=== PATIENT | female | born 1970 | race Caucasian/White ===

== ENCOUNTER 2016-09-30 19:33 | Emergency (ER) | payer OTHER ==
--- NOTE | 2016-09-30 20:30 | ERNOTE ---
Lower Extremity HPI - Narrative Date of Service: 09/30/16 - General Lower Extremities Pain: knee: left - abrasion and tender, ankle: right - painful , swollen Time Seen by Provider: 09/30/16 20:00 Source: patient Exam Limitations: no limitations - Immun/Allergies/Home Medications Immunizations: IMMUNIZATION HX Immunizations Up to Date Yes History of Influenza Vaccine No Hx Pneumococcal Vaccination No Allergies/Adverse Reactions: Allergies Allergy/AdvReac Type Severity Reaction Status Date / Time penicillin G Allergy Verified 09/30/16 19:38 codeine AdvReac Verified 09/30/16 19:38 Home Medications: HOME MEDICATIONS HYDROcodone/ACETAMINOPHEN [Hydrocodon-Acetaminophen 5-325] 1 each PO TID PRN # 20 tablet 09/30/16 [Last Taken Unknown] - History of Present Illness Narrative: 46-year-old female presented to the emergency room after a fall. Patient states that she was stepping off a curb when she rolled her right ankle landing on the grass. States that her right ankle is extremely painful and she is unable to bear weight, her left knee has an abrasion she said the pain is very mild. Date (Duration): 09/30/16 Occurred: just prior to arrival Location of Incident: home Method of Injury: Reports: fell Reason for Fall: Reports: lost balance Loss of Consciousness: Reports: no loss of consciousness Modifying Factors - (Improves): Reports: immobilization Modifying Factors - (Worsens): Reports: movement Associated Symptoms: Reports: unable to bear weight, weakness. Denies: headache , sensory loss, chest pain, vomiting/diarrhea Other Injuries: Reports: extremities - left knee abrasion Subsequent Symptoms: Denies: sensory loss, numbness, bowel/bladder problem Review of Systems - Review of Systems Constitutional: Present: no symptoms reported EYE: Present: no symptoms reported ENT: Present: no symptoms reported Respiratory: Present: no symptoms reported Cardiology: Present: no symptoms reported Gastrointestinal/Abdominal: Present: no symptoms reported Genitourinary: Present: no symptoms reported Musculoskeletal: Present: See HPI, joint pain, joint swelling Neurological: Present: no symptoms reported Endocrine: Present: no symptoms reported Hematologic/Lymphatic: Present: no symptoms reported Psych: Present: no symptoms reported All Other Systems: All systems neg except as marked - Patient's Past Medical History Patient History - Medical: No pertinent hx Patient History - Cardiac/Respiratory: No pertinent hx Patient History - Cancer: No Hx of Cancer Patient History - Surgical Procedures: , T & A, Other Patient History - Other: None LMP (females 10-50): last week - Social History Living Situations: home Abuse History: No History of abuse Psych History: No pertinent hx Smoking Status: Never smoker Alcohol Use: none Drug Use: none - Immunizations Immunizations Up to Date: Yes Hx Pneumococcal Vaccination: No History of Influenza Vaccine: No Physical Exam - Physical Exam Narrative: Patient's right ankle is swollen and tender to palpation. Patient does have +2 bilateral lower extremity edema all the way up to the knee.Ice applied, denies hitting her head or any other injury at his time General Appearance: Present: wd/wn, alert, no apparent distress Eye Exam: Normal inspection: bilateral Ears, Nose, Throat: Present: normal ENT inspection Neck: Present: normal inspection Respiratory: Present: no respiratory distress, lungs clear Cardiovascular/Chest: Present: regular rate, rhythm, normal peripheral pulses Peripheral Pulses: N=norm/S=strong/W=weak/B=bound/A=absent: Dorsalis-pedis (R): Normal, Dorsalis-pedis (L): Normal Gastrointestinal/Abdominal: Present: normal bowel sounds, soft Extremity Exam: Present: normal except - - right ankle swollen, and painful to touch Neurological Exam: Present: alert, oriented, normal mood/affect Skin Exam: Present: normal color, warm/dry, other - amall abrasion to left knee Lymphatic Exam: Present: no adenopathy ED Progress - Date and Time Seen: Date and Time: 09/30/16 20:27 patient refused x ray for left knee. states pain is at a min and did not want x ray. - Vital Signs Patient's Vital Signs:: I have reviewed the patient's vital signs. Vital Signs: Vital Signs 09/30/16 19:39 Temperature 37.1 C Pulse Rate 90 Respiratory 16 Rate Blood Pressure 131/83 O2 Sat by Pulse 99 Oximetry - X-Ray X-Ray #1 X-Ray: ankle Interpretation: Reviewed by me - Progress/Reassessment Chief Complaint: Lower Extremity Pain/ Injury Departure Clinical Impression: Fracture of fibula Qualifiers: Encounter type: initial encounter Fibula location: distal Fracture type: closed Fracture morphology: unspecified fracture morphology Laterality: right Qualified Code(s): S82.831A - Other fracture of upper and lower end of right fibula, initial encounter for closed fracture - Departure Disposition: Home Follow Up Needed Condition: Stable Instructions: Cast or Splint Care, [id number], Tibial and Fibular Fracture, Adult Additional Instructions: Continue previous home medications as directed. Return to the emergency room for any changes and pain sensation motion or color in the casted foot. Return to emergency room if pain is not able to be controlled with [id number] or prescribed pain medications. She may apply ice for swelling 20 minutes on and then 20 minutes off. Make a follow-up appointment with an orthopedist on Sunday regarding fracture. You are to remain nonweight bearing until you're cleared by an orthopedist. Referrals: Adolfo Gordillo MD [Staff Physician] - Prescriptions: HYDROcodone/ACETAMINOPHEN [Hydrocodon-Acetaminophen 5-325] 1 each PO TID PRN # 20 tablet PRN Reason: Pain
[2016-09-30] MEDS ORDERED: KETOROLAC TROMETHAMINE 60 MG/2 ML VIAL IM ONE ×2 (20:50→21:01)
[2016-09-30] MEDS ORDERED: HYDROcodone/ACETAMINOPHEN 1 EACH TABLET PO ONE (21:31)
[2016-09-30] MEDS ORDERED: HYDROcodone/ACETAMINOPHEN 1 EACH TABLET ONE (21:47)
[2016-09-30 22:29] VITALS: BP 134/90
== END 2016-09-30 22:10 | disposition home or self-care (01) ==
LOC: ER 19:33
PROC: 2W3SX1Z Immobilization of Right Foot using Splint (ICD-10-PCS; principal; 2016-09-30)
DX: S82.831A Other fracture of upper and lower end of right fibula, initial encounter for closed fracture (principal); W10.1XXA Fall (on)(from) sidewalk curb, initial encounter; Y92.480 Sidewalk as the place of occurrence of the external cause